=== PATIENT | male | born 1965 | race Caucasian/White ===

== ENCOUNTER → 2016-08-14 | Day surgery (SDC) | payer BC, OTHER ==
[~2016-08-14] MED LIST: ACETAMINOPHEN/HYDROcodone 325 MG/5 MG TAB ONE; BACT800T5 PO; BUPIVACAINE HCL PF 0.75% 30 ML VIAL ONE; CEPH500C3 PO; DAPA1TAB2 PO; IBUP800T23 PO; LACTATED RINGER'S 1000 ML INJ 1,000 ML ONE; LIDOCAINE 1.5%/EPINEPHrine 1:200,000 PF SOLN 30 ML AMP ONE; MIDAZOLAM HCL 2 MG/2 ML VIAL ONE; MIDAZOLAM HCL 5 MG/ML VIAL (1 ML) ONE; ONDANSETRON HCL 4 MG/2 ML VIAL IV PUSH ONE; PROPOFOL 200 MG/20 ML AMP IV ONE; ceFAZolin 2 GM PREMIX 50 ML ONE
--- NOTE | 2016-08-18 18:06 | MP ---
cc: AKIKO NAVA MD DATE OF SURGERY 08/14/16 PREOPERATIVE DIAGNOSIS 1. Right shoulder rotator cuff tendon tear 2. Right shoulder impingement syndrome 3. Right shoulder SLAP labral tear 4. Right shoulder osteoarthritis acromioclavicular joint. POSTOPERATIVE DIAGNOSES 1. Right shoulder rotator cuff tendon tear 2. Right shoulder impingement syndrome 3. Right shoulder SLAP labral tear 4. Right shoulder osteoarthritis acromioclavicular joint. PROCEDURE 1. Right shoulder arthroscopic rotator cuff repair 2. Right shoulder arthroscopic subacromial decompression 3. Right shoulder arthroscopic extensive debridement of SLAP labral tear 4. Right shoulder arthroscopic distal clavicle excision. SURGEON Dr. Yuri Nava HAND ENDBAND CUTTER STEFANIE Bronson ANESTHESIA General with interscalene block. REVIEW OF SYSTEMS Less then 10 mL COMPLICATIONS None. IMPLANTS USED Arthrex JUSTIFICATION The patient is a 50-year male who injured the right shoulder, has persistence symptoms of severe pain and weakness in regards to his right shoulder with failure of conservative treatment. Clinical exam as well as MRI confirmed the above-named findings. He was counseled as to risks, benefits and alternatives of above named surgical procedure. He did wish to proceed with surgery. A written consent was obtained. The patient identified by name, scalene block anesthesia was administered by Dr. Rivas from the anesthesiology service. The patient was taken to operating room and general anesthesia was administered as well as 2 grams of IV Ancef. The patient was carefully turned to a left lateral decubitus position. A lateral arm roll was placed. All bony prominences and pressure points were well padded. The patient's neck was carefully monitored and kept neutral. An arthroscopic arm camargo was gently applied to right upper extremity with 10 pounds of traction placed. The right shoulder prepped and draped using isopropyl alcohol, Hibiclens solution and DuraPrep solution. After appropriate time-out was performed, a standard posterior and anterior glenohumeral arthroscope portal was established. The glenohumeral joint revealed evidence of extensive labral tearing along the anterior superior posterior aspect of labrum. An arthroscopic shaver was introduced from an anterior portal. Extensive debridement of the labrum was performed from the 3 o'clock position to the 12 o'clock position back down to the 9 o'clock position. Mild grade 2 chondromalacia of the glenohumeral joint was noted. There was evidence of full-thickness tear of the supraspinatus tendon which was also debrided. The subscapularis and biceps was intact. Attention was turned to the subacromial space. There was evidence of severe impingement bursitis. An arthroscopic shaver was introduced from a lateral portal. A subacromial decompression was performed. The shaver was used for extensive bursectomy. The arthroscopic bur was used to perform an acromioplasty and the cautery device was used to release the coracoacromial ligament. The bur was used to perform a distal clavicle excision and from the lateral portal as well as from the anterior portal 1-cm distal clavicle was excised. The bur was used to decorticate the greater tuberosity in preparation for rotator cuff tendon repair. Two Arthrex 4.75 mm bio-swivel lock anchors were inserted along the medial row. The Arthrex scorpion device was used to shuttle #2 fiber tape sutures through the anterior-posterior portions of the tear which was fed through the eyelet of each anchor. A #2 fiber link suture was placed along the anterior and posterior portion of the tear. At this point, an Arthrex double row speed bridge construct was then performed with insertion of a posterolateral and anterolateral anchor. There was excellent purchase and fixation. After insertion of the anchors, the repair was probed and noted to have good stability and fixation. At the conclusion of the surgical procedure, the arthroscopic portals were closed with 3-0 Prolene suture. Sterile dressings were applied. The patient was placed in swing and swath immobilizer. He tolerated the procedure well with no intraoperative complications noted. Jarvis Lamar, physician geological survey field assistant certified, was present during the entire procedure to include patient positioning and the procedure itself. The medical necessity of a physician geological survey field assistant was indicated due to the complexity of the procedure. He assisted with appropriate manipulation of the arm and also manipulation of the camera. He assisted with shuttling of sutures, also implantation of suture anchors for purpose of rotator cuff tendon repair. MD LISA Dutta/ /8:47 AM /4:47 PM
== END | disposition home or self-care (01) ==
LOC: ESDC 06:08
PROVIDERS: ATTEND Orthopaedic Surgery Sports Medicine
DX: M75.121 Complete rotator cuff tear or rupture of right shoulder, not specified as traumatic (principal); M75.41 Impingement syndrome of right shoulder; S43.431A Superior glenoid labrum lesion of right shoulder, initial encounter; M19.011 Primary osteoarthritis, right shoulder
CPT/HCPCS: 01630; 01991; 29823; 29824; 29826; 29827; 64417; C1713; J0690; J2250; J2405; J3010; J7120